=== PATIENT | female | born 1985 | race Caucasian/White ===

== ENCOUNTER 2017-09-07 17:28 | Emergency (ER) | payer MEDICAID ==
[~2017-09-07 17:28] MED LIST: CLON.5 PO; LITH300 PO; LITH600C2 PO; REST30CA PO; RISP1 PO
[2017-09-07 17:32] VITALS: BP 146/75; PULSE 66; RESP 12; TEMP 98.6
--- NOTE | 2017-09-07 18:15 | PD ---
HPI Chief Complaint: Injury Time Seen by Provider: 17:50 Travel History International Travel<30 days: No Contact w/Intl Traveler<30days: No Traveled to known affect area: No History of Present Illness HPI 31-year-old female presents to the emergency department with right ankle pain after a potential reinjury 2 days ago. Patient states that she fell on her ankle and was diagnosed with a acute avulsion fracture of the dorsal medial talus neck the [facility]. Patient states the casted her ankle and sent her home with crutches. Patient states that the same day she slipped with her crutches at her house and landed on her foot again is concerned that she reinjured her foot. Patient does have swelling and tenderness about the medial lateral malleolus and dorsal aspect of foot. States that the bottom of her foot feels "numb" and she has trouble movement of her toes secondary to pain. She is concerned about the excessive swelling and bruising as well. PFSH Past Medical History Arthritis: Yes (painful joints) Asthma: No Autoimmune Disease: No Blood Disorders: No Bipolar Disorder: Yes Anxiety: Yes Depression: Yes Heart Rhythm Problems: No Cancer: No Cardiovascular Problems: No High Cholesterol: No Chemotherapy: No Chest Pain: No Congestive Heart Failure: No COPD: No Cerebrovascular Accident: No Diminished Hearing: No Endocrine: No GERD: No Glaucoma: No Genitourinary: No Headaches: No Hepatitis: No Hiatal Hernia: No Hypertension: No Immune Disorder: No Kidney Stones: No Musculoskeletal: No Neurologic: No Psychiatric: Yes Reproductive: No Respiratory: No Migraines: No Myocardial Infarction: No Radiation Therapy: No Renal Failure: No Seizures: No Sickle Cell Disease: No Sleep Apnea: No Ulcer: No : 0 Past Surgical History AICD: No Appendectomy: No Arteriovenous Shunt: No Cholecystectomy: No Insulin Pump: No Joint Replacement: No Pacemaker: No Tonsillectomy: Yes Social History Alcohol Use: Yes (occasional beer) Tobacco Use: No Substance Use: Yes (cocaine in the past) Allergies-Medications (Allergen,Severity, Reaction): Coded Allergies: penicillin G (Unverified Allergy, Severe, SWELLING, 09/07/17) ziprasidone (Unverified Allergy, Severe, can't breathe, 09/07/17) ketorolac (Unverified Allergy, Mild, 09/07/17) Reported Meds & Prescriptions Reported Meds & Active Scripts Active Reported Risperdal (Risperidone) 1 Mg Tab 1 Mg PO HS Lithonate (Brashear Carbonate) 600 Mg Cap 600 Mg PO HS Lithonate (Brashear Carbonate) 300 Mg Cap 300 Mg PO BIDAC Klonopin (Clonazepam) 0.5 Mg Tab 0.5 Mg PO TID Restoril (Temazepam) 30 Mg Cap 30 Mg PO HSPRN FOR INSOMNIA Review of Systems Except as stated in HPI: all other systems reviewed are Neg Physical Exam Narrative GENERAL: Well-nourished, well-developed patient. SKIN: Focused skin assessment warm/dry. HEAD: Normocephalic. EYES: No scleral icterus. No injection or drainage. NECK: Supple, trachea midline. No JVD or lymphadenopathy. GASTROINTESTINAL: Abdomen soft, non-tender, nondistended. MUSCULOSKELETAL: No cyanosis, or edema. Right ankle/foot- moderate edema from the malleolus to the proximal toes. No obvious deformities. Dependent ecchymosis. Neurovascularly intact BACK: Nontender without obvious deformity. No CVA tenderness. Data Data Last Documented VS Vital Signs Date Time Temp Pulse Resp B/P (MAP) Pulse Ox O2 Delivery O2 Flow Rate FiO2 09/07/17 20:00 09/07/17 17:32 98.6 66 12 Orders Orders Ankle, Complete ([id number]) (09/07/17 ) Foot, Complete ([id number]) (09/07/17 ) Ice/Cold Pack (09/07/17 19:11) Splint Or Brace Apply/Monitor (09/07/17 19:11) Acetamin-Hydrocod 325-5 Mg ([place] 5-325 (09/07/17 19:15) Ed Discharge Order (09/07/17 19:15) Fiberglass Short Leg Splint Ad (09/07/17 ) Fiberglass Sugartong Sp Ad Sl (09/07/17 ) MDM Medical Decision Making Medical Screen Exam Complete: Yes Emergency Medical Condition: Yes Differential Diagnosis Right ankle fracture versus contusion versus sprain Right foot contusion versus fracture versus sprain Narrative Course 31-year-old female presents to the emergency department with right ankle pain after a potential reinjury 2 days ago. Patient states that she fell on her ankle and was diagnosed with a acute avulsion fracture of the dorsal medial talus neck the [facility]. Patient states the casted her ankle and sent her home with crutches. Patient states that the same day she slipped with her crutches at her house and landed on her foot again is concerned that she reinjured her foot. She states that the cast was "shattered in deformed" after the incident. Patient does have swelling and tenderness about the medial lateral malleolus and dorsal aspect of foot. States that the bottom of her foot feels "numb" and she has trouble movement of her toes secondary to pain. She is concerned about the excessive swelling and bruising as well. Vital signs stable Physical exam- moderate edema and ecchymosis of the right foot and ankle. Patient with an Bobby wrap. neurovascularly intact. Imaging studies and dispo pending as of sign out to Ephraim Gamboa PA-C. Referrals: Orthopedist Additional Instructions: Follow-up with an orthopedic doctor within 2-3 days. Follow-up with her primary care physician within 2-3 days. Disposition: 01 DISCHARGE HOME Condition: Stable Danae Levine Sep 07, 2017 18:15
[2017-09-07] MEDS ORDERED: ACETAMINOPHEN/HYDROcodone 325 MG/5 MG TAB PO ONE (19:15)
--- NOTE | 2017-09-07 19:19 | PD ---
Physical Exam Date Seen by Provider: Sep 07, 2017 Time Seen by Provider: 19:15 Data Data Last Documented VS Vital Signs Date Time Temp Pulse Resp B/P (MAP) Pulse Ox O2 Delivery O2 Flow Rate FiO2 09/07/17 17:32 98.6 66 12 146/75 (98) Orders Orders Ankle, Complete ([id number]) (09/07/17 ) Foot, Complete ([id number]) (09/07/17 ) Ice/Cold Pack (09/07/17 19:11) Splint Or Brace Apply/Monitor (09/07/17 19:11) Acetamin-Hydrocod 325-5 Mg ([place] 5-325 (09/07/17 19:15) Ed Discharge Order (09/07/17 19:15) MDM Medical Record Reviewed: Yes Supervised Visit with FANNIE: No Interpretation(s) Right foot: Patient has a fracture of the talus. Right ankle: Once again the ankle x-ray reveals a fractured patella but no other fractures. Differential Diagnosis MDM: High Differential diagnoses: Fracture, sprain, strain, dislocation, contusion, neurovascular injury Narrative Course Patient's x-ray reveals her prior talus fracture which was identified 2 days ago. She is placed back into a posterior sugar tong splint. She states that she has crutches at home that she does not want to use them. She has a wheelchair with her. She is given Lortab 5 a grams by mouth here for pain. She is advised to follow-up with her referral doctor. Patient states that Medicaid gave her doctor [place] Diagnosis Primary Impression: Fracture of right talus Referrals: Orthopedist Patient Instructions: General Instructions, Narcotic given in the ED Additional Instruction: Rest. Elevation. Ice packs for the next 3 days. Posterior splint and crutches. No weight-bearing . Continue home medicines. 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 Return to the ER if any problems Disposition: 01 DISCHARGE HOME Condition: Stable Viraj Gamboa Sep 07, 2017 19:19
--- NOTE | 2017-09-07 20:01 | RADRPT ---
EXAM DATE/TIME: 09/07/2017 18:38 [facility] COMPARISON: No previous studies available for comparison. INDICATIONS : Right foot pain , patient fell 2 days ago. MEDICAL HISTORY : None. SURGICAL HISTORY : None. ENCOUNTER: Initial ACUITY: 2 days PAIN SCORE: 10/10 LOCATION: Right medial, and lateral aspect as well FINDINGS: Three view examination of the right foot demonstrates soft tissue swelling along the dorsum of the fo ot. There appears to be cortical disruption along the dorsal medial aspect of the talar neck. CONCLUSION: 1. Plain film findings concerning for fracture through the dorsal medial aspect of the talar neck. 2. Soft tissue swelling along the dorsum of the foot. Ag Skelton MD on September 07, 2017 at 19:57 Board Certified Radiologist. This report was verified electronically.
--- NOTE | 2017-09-07 20:02 | RADRPT ---
EXAM DATE/TIME: 09/07/2017 18:41 [facility] COMPARISON: No previous studies available for comparison. INDICATIONS : Right foot and ankle pain and bruising, swelling post fall 2 days ago. MEDICAL HISTORY : None. SURGICAL HISTORY : None. ENCOUNTER: Initial ACUITY: 2 days PAIN SCORE: 10/10 LOCATION: Right ankle FINDINGS: Three view exam was performed of the right ankle. There appears to be a displaced fracture of the wilder julian medial aspect of the talar neck with regional soft tissue swelling. Ankle mortise is maintained. CONCLUSION: Talar fracture. Ag Skelton MD on September 07, 2017 at 19:59 Board Certified Radiologist. This report was verified electronically.
== END 2017-09-07 20:13 | disposition home or self-care (01) ==
LOC: NEPK 17:28
DX: S92.111A Displaced fracture of neck of right talus, initial encounter for closed fracture (principal); M19.90 Unspecified osteoarthritis, unspecified site; F31.9 Bipolar disorder, unspecified; W19.XXXA Unspecified fall, initial encounter; Z79.899 Other long term (current) drug therapy; Z88.0 Allergy status to penicillin; Z88.8 Allergy status to other drugs, medicaments and biological substances
CPT/HCPCS: 73610; 73630; 99283